=== PATIENT | female | born 1975 | race Caucasian/White ===

== ENCOUNTER → 2016-11-07 | Outpatient (CLI) | payer BC | LOC: BRMIMAGING 14:15 | PROVIDERS: ATTEND Physician Assistant Medical | DX: Z12.31 Encounter for screening mammogram for malignant neoplasm of breast (principal) | CPT/HCPCS: G0202 ==

== ENCOUNTER → 2017-04-03 | Outpatient (CLI) | payer BC | LOC: BRMIMAGING 15:36 | PROVIDERS: ATTEND Physician Assistant Medical | DX: Z03.89 Encounter for observation for other suspected diseases and conditions ruled out (principal) | CPT/HCPCS: 71020-PO ==

== ENCOUNTER → 2017-11-26 | Outpatient (CLI) | payer BC | LOC: BRMIMAGING 14:40 | PROVIDERS: ATTEND Physician Assistant Medical | DX: Z12.31 Encounter for screening mammogram for malignant neoplasm of breast (principal) ==